=== PATIENT | female | born 1945 | race Caucasian/White ===

== ENCOUNTER 2021-08-30 09:11 | Emergency (ER) | payer OTHER ==
[~2021-08-30] VITALS: Ht 152.4 cm; Wt 51.3 kg
[2021-08-30] MEDS ORDERED: PROPAFENONE HC225 M1 (09:38)
== END 2021-08-30 10:40 | disposition home or self-care (01) ==
LOC: ER 09:11
DX: S86.811A Strain of other muscle(s) and tendon(s) at lower leg level, right leg, initial encounter (principal); X58.XXXA Exposure to other specified factors, initial encounter; Y93.89 Activity, other specified; Y92.89 Other specified places as the place of occurrence of the external cause; Y99.8 Other external cause status

== ENCOUNTER 2023-06-03 08:32 | Outpatient (CLI) | payer OTHER ==
[~2023-06-03 08:32] MED LIST: PROPAFENONE HC150 MG PO; PROPAFENONE HC225 M1
== END 2023-06-03 08:35 | disposition home or self-care (01) ==
LOC: RX STUDY 08:32
PROVIDERS: ATTEND Otolaryngology
DX: R13.14 Dysphagia, pharyngoesophageal phase (principal)